=== PATIENT | female | born 1985 | race Caucasian/White ===

== ENCOUNTER 2017-02-08 12:14 | Emergency (ER) | payer OTHER ==
[2017-02-08 12:28] VITALS: TEMP 98.6
--- NOTE | 2017-02-08 13:46 | EDPHY ---
H & P Stated Complaint: vaginal spotting x 2 hours --used a quarter pad so far, mild cramping - Personal History LMP (Females 10-55): Over 28 Days Ago Current Tetanus/Diphtheria Vaccine: Unsure Current Tetanus Diphtheria and Acellular Pertussis (TDAP): Unsure Tetanus Vaccine Date: 01/2015 - Medical/Surgical History Hx Asthma: No Hx Chronic Respiratory Disease: No Hx Diabetes: No Hx Cardiac Disease: No Hx Renal Disease: No Hx Cirrhosis: No Hx Alcoholism: No Hx HIV/AIDS: No Hx Splenectomy or Spleen Trauma: No Other PMH: HX: OVARIAN CYST, ENDOMETRIOSIS - Social History Smoking Status: Never smoked Time Seen by Provider: 02/08/17 13:08 HPI/ROS: Chief Complaint: , vaginal bleeding HPI: 31-year-old woman who is status post IVF on January 11. She had an ultrasound 3 days ago which revealed 2 intrauterine pregnancies, 1 with a viable heartbeat level was told the is still early because he was at 6 weeks 2 days. About 3 hours ago she felt a gregory of blood vaginally. Has soaked about a quarter size blood on a pad. Had some very mild cramping. Has not had any further bleeding. No nausea or vomiting. No fevers or chills. ROS: 10 point Review of Systems is negative except as noted in the HPI. PMH: Infertility, IVF Social History: No smoking, no alcohol, no recreational drug use Family History: non-contributory Physical Exam: Gen: Awake, Alert, No Distress HEENT: Nose: no rhinorrhea Eyes: PERRLA, EOMI Mouth: Moist mucosa Neck: Supple, no JVD Chest: nontender, lungs clear to auscultation Heart: S1, S2 normal, no murmur Abd: Soft, non-tender, no guarding Back: no CVA tenderness, no midline tenderness Ext: no edema, non-tender Skin: no rash Neuro: CN II-XII intact, Sensation grossly intact, Strength 5/5 in bilateral upper and lower extremities (Jayro Liriano) Constitutional: Initial Vital Signs Temperature (C) 37.0 C 02/08/17 12:25 Heart Rate 77 02/08/17 12:25 Respiratory Rate 16 02/08/17 12:25 Blood Pressure 111/67 02/08/17 12:25 O2 Sat (%) 98 02/08/17 12:25 O2 Delivery Mode Room Air Allergies/Adverse Reactions: No Known Allergies Allergy (Unverified 02/08/17 12:23) Home Medications: Medication Instructions Recorded Estrogens, Conjugated 02/08/17 Progesterone 02/08/17 Medical Decision Making ED Course/Re-evaluation: 1610: Evaluated patient and discussed ultrasound results, which show a subchorionic hemorrhage. I answered all her questions and recommended resting over the next few days. She plans to follow up with her OB this week. She's been given the full radiologist's report and a disc of her images to bring with her. We discussed return precautions. She is comfortable with plan for follow up. (Maria Avendaño) - Data Points Laboratory Results: 02/08/17 13:10 Beta HCG, Quant 12408.00 mIU/mL H mIU/mL (0.00-4.83) Departure - Departure Disposition: Home, Routine, Self-Care Clinical Impression: Subchorionic hemorrhage in first trimester Qualifiers: Fetus number: single or unspecified fetus Qualified Code(s): O41.8X10 - Other specified disorders of amniotic fluid and membranes, first trimester, not applicable or unspecified Condition: Good Instructions: Subchorionic Hemorrhage (ED) Additional Instructions: Follow up with your doctors in [place] tomorrow. Bring the radiologist's report and CD images with you to that appointment. Return to the ED for severe pain, dramatic increase in bleeding, lightheadedness, or other worsening of condition. Referrals: Emily Tidwell MD [Primary Care Provider] - As per Instructions Stand Alone Forms: Work Excuse
[2017-02-08 16:35] VITALS: BP 119/72; PULSE 71; RESP 18; O2SAT 97
== END 2017-02-08 16:36 | disposition home or self-care (01) ==
DX: O36.8912 Maternal care for other specified fetal problems, first trimester, fetus 2 (principal); Z3A.01 Less than 8 weeks gestation of pregnancy

== ENCOUNTER → 2017-04-16 | Outpatient (CLI) | payer OTHER | LOC: FIMAGING 13:56 | PROVIDERS: ATTEND Obstetrics & Gynecology | DX: O09.812 Supervision of pregnancy resulting from assisted reproductive technology, second trimester (principal); Z3A.16 16 weeks gestation of pregnancy ==

== ENCOUNTER → 2017-05-07 | Outpatient (CLI) | payer OTHER | LOC: FIMAGING 09:40 | PROVIDERS: ATTEND Obstetrics & Gynecology | DX: O30.042 Twin pregnancy, dichorionic/diamniotic, second trimester (principal); O09.812 Supervision of pregnancy resulting from assisted reproductive technology, second trimester; Z3A.19 19 weeks gestation of pregnancy ==

== ENCOUNTER → 2017-05-28 | Outpatient (CLI) | payer OTHER | LOC: FIMAGING 09:23 | PROVIDERS: ATTEND Obstetrics & Gynecology | DX: O09.812 Supervision of pregnancy resulting from assisted reproductive technology, second trimester (principal); O30.042 Twin pregnancy, dichorionic/diamniotic, second trimester; Z3A.22 22 weeks gestation of pregnancy ==

== ENCOUNTER → 2017-06-11 | Outpatient (CLI) | payer OTHER | LOC: FIMAGING 08:38 | PROVIDERS: ATTEND Obstetrics & Gynecology | DX: O09.812 Supervision of pregnancy resulting from assisted reproductive technology, second trimester (principal); O30.042 Twin pregnancy, dichorionic/diamniotic, second trimester; O36.5922 Maternal care for other known or suspected poor fetal growth, second trimester, fetus 2; Z3A.24 24 weeks gestation of pregnancy ==

== ENCOUNTER → 2017-06-18 | Outpatient (CLI) | payer OTHER | LOC: FIMAGING 14:22 | PROVIDERS: ATTEND Obstetrics & Gynecology | DX: O30.042 Twin pregnancy, dichorionic/diamniotic, second trimester (principal); O09.812 Supervision of pregnancy resulting from assisted reproductive technology, second trimester; O36.5922 Maternal care for other known or suspected poor fetal growth, second trimester, fetus 2; Z3A.25 25 weeks gestation of pregnancy ==

== ENCOUNTER → 2017-06-25 | Outpatient (CLI) | payer OTHER | LOC: FIMAGING 08:05 | PROVIDERS: ATTEND Obstetrics & Gynecology | DX: O09.813 Supervision of pregnancy resulting from assisted reproductive technology, third trimester (principal); O30.043 Twin pregnancy, dichorionic/diamniotic, third trimester; O36.5931 Maternal care for other known or suspected poor fetal growth, third trimester, fetus 1; O43.123 Velamentous insertion of umbilical cord, third trimester; Z3A.26 26 weeks gestation of pregnancy ==

== ENCOUNTER → 2017-07-02 | Outpatient (CLI) | payer OTHER | LOC: FIMAGING 08:22 | PROVIDERS: ATTEND Obstetrics & Gynecology | DX: O30.043 Twin pregnancy, dichorionic/diamniotic, third trimester (principal); O09.813 Supervision of pregnancy resulting from assisted reproductive technology, third trimester; O36.5931 Maternal care for other known or suspected poor fetal growth, third trimester, fetus 1; Z3A.27 27 weeks gestation of pregnancy ==

== ENCOUNTER → 2017-07-09 | Outpatient (CLI) | payer OTHER | LOC: FIMAGING 09:38 | PROVIDERS: ATTEND Obstetrics & Gynecology | DX: O36.5932 Maternal care for other known or suspected poor fetal growth, third trimester, fetus 2 (principal); O09.813 Supervision of pregnancy resulting from assisted reproductive technology, third trimester; O30.043 Twin pregnancy, dichorionic/diamniotic, third trimester; Z3A.28 28 weeks gestation of pregnancy ==

== ENCOUNTER → 2017-07-16 | Outpatient (CLI) | payer OTHER | LOC: FIMAGING 11:48 | PROVIDERS: ATTEND Obstetrics & Gynecology | DX: O30.043 Twin pregnancy, dichorionic/diamniotic, third trimester (principal); O36.5921 Maternal care for other known or suspected poor fetal growth, second trimester, fetus 1; Z3A.29 29 weeks gestation of pregnancy ==

== ENCOUNTER → 2017-07-23 | Outpatient (CLI) | payer OTHER | LOC: FIMAGING 08:20 | PROVIDERS: ATTEND Obstetrics & Gynecology | DX: O30.043 Twin pregnancy, dichorionic/diamniotic, third trimester (principal); O09.813 Supervision of pregnancy resulting from assisted reproductive technology, third trimester; O36.5931 Maternal care for other known or suspected poor fetal growth, third trimester, fetus 1; Z3A.30 30 weeks gestation of pregnancy ==

== ENCOUNTER → 2017-07-30 | Outpatient (CLI) | payer OTHER | LOC: FIMAGING 14:30 | PROVIDERS: ATTEND Obstetrics & Gynecology | DX: O36.5932 Maternal care for other known or suspected poor fetal growth, third trimester, fetus 2 (principal); O30.043 Twin pregnancy, dichorionic/diamniotic, third trimester; O09.813 Supervision of pregnancy resulting from assisted reproductive technology, third trimester; Z3A.31 31 weeks gestation of pregnancy ==

== ENCOUNTER → 2017-08-06 | Outpatient (CLI) | payer OTHER | LOC: FIMAGING 08:34 | PROVIDERS: ATTEND Obstetrics & Gynecology | DX: O09.813 Supervision of pregnancy resulting from assisted reproductive technology, third trimester (principal); O30.043 Twin pregnancy, dichorionic/diamniotic, third trimester; O36.5932 Maternal care for other known or suspected poor fetal growth, third trimester, fetus 2; Z3A.32 32 weeks gestation of pregnancy ==

== ENCOUNTER → 2017-10-01 | Outpatient (CLI) | payer OTHER | LOC: CIMAGING 10:36 | PROVIDERS: ATTEND Internal Medicine | DX: Z13.89 Encounter for screening for other disorder (principal) | CPT/HCPCS: 76536-PO ==